=== PATIENT | female | born 1945 | race Caucasian/White ===

== ENCOUNTER 2019-04-07 11:01 | Emergency (ER) | payer OTHER ==
[~2019-04-07] VITALS: Ht 167.6 cm; Wt 61.4 kg
[2019-04-07 11:20] VITALS: Ht 167.6 cm; Wt 61.4 kg
[2019-04-07 14:15] VITALS: BP 136/72
== END 2019-04-07 14:15 | disposition home or self-care (01) ==
LOC: ED 11:01
DX: J32.9 Chronic sinusitis, unspecified (principal); E03.9 Hypothyroidism, unspecified; Z88.2 Allergy status to sulfonamides